=== PATIENT | male | born 1955 | race Native Hawaiian/Other Pacific Islander ===

== ENCOUNTER 2017-05-02 14:32 | Emergency (ER) | payer SELFPAY ==
[~2017-05-02] VITALS: Ht 165.1 cm; Wt 75.0 kg
[~2017-05-02 14:32] MED LIST: PROS5TAB2 PO
[2017-05-02 14:34] VITALS: BP 148/78; PULSE 73; RESP 12; TEMP 98.6; O2SAT 97
== END 2017-05-02 15:23 | disposition left against medical advice (07) ==
LOC: NED 14:32
DX: Z04.3 Encounter for examination and observation following other accident (principal); Z53.21 Procedure and treatment not carried out due to patient leaving prior to being seen by health care provider
CPT/HCPCS: 99281